=== PATIENT | male | born 1980 | race Caucasian/White ===

== ENCOUNTER → 2023-06-07 | Outpatient (CLI) | payer OTHER | END | disposition home or self-care (01) | LOC: RADPV 11:44 | PROVIDERS: ATTEND Chiropractor | DX: I51.7 Cardiomegaly (principal); M77.31 Calcaneal spur, right foot; M25.772 Osteophyte, left ankle; R07.9 Chest pain, unspecified; R00.0 Tachycardia, unspecified | CPT/HCPCS: 71046; 93005; 93306 ==